=== PATIENT | male | born 1965 | race Two or more races ===

== ENCOUNTER 2017-08-14 17:53 | Emergency (ER) | payer OTHER ==
[2017-08-14 18:59] LABS: INFLUENZA A PATIENT NEGATIVE (NEGATIVE)
[2017-08-14 19:03] LABS: INFLUENZA B PATIENT POSITIVE (NEGATIVE); OBC FLU VALID
== END 2017-08-14 19:28 | disposition home or self-care (01) ==
LOC: ER 19:28
DX: J10.1 Influenza due to other identified influenza virus with other respiratory manifestations (principal)
CPT/HCPCS: 87804; 87804-59; 99284